=== PATIENT | female | born 1950 | race Caucasian/White ===

== ENCOUNTER → 2016-08-12 | Outpatient (CLI) | payer MEDICARE, MEDICAID ==
[~2016-08-12] MED LIST: ACYCLOVIR200 MG PO; ADVIL200 MG PO; ANTI-DIARRHEAL2 MG PO; ASPIRIN 81M81 MG/TA2 PO; ASPIRIN E.C. 8181 MG PO; AVONEX ADM30 MCG/KIT IM; AVONEX PEN30 MCG/0.5 IM; BACTRIM DS 8001 TAB PO; BENADRYL25 M2 PO; BENGAY COLD THERAP5% TP; BENGAY ULTRA STREN5% TP; BETASERON0.3 MG SC; BIOFREEZE 0.2%-1 GE1 TOP; BUMETANIDE0.5 MG PO; BUMEX 1MG TA1 MG/TA1 PO; CALCIUM 600600 M2 PO; CALCIUM CARBON650 M2 PO; CARBATROL200 MG PO; CARDI-OMEGA1000 MG PO; CEFTIN500 MG PO; CHLORZOXAZONE; CITRUCEL WI2 GM/Dose PO; CLARITIN 1010 MG/TAB PO; CLEOCIN HC150 MG/CAP PO; COLACE 100100 MG/CAP PO; DARVOCET-N-101 UDTAB PO; DEMADEX 20MG20 M1 PO; DOXYCYCLINE 10100 MG PO; EPA FISH OIL1 SGL PO; EPITOL200 MG PO; FENTANYL 25 MCG TD; FENTANYL 50MCG TD; FENTANYL37.5 MCG/H TD; FIBER0.52 GM PO; FISH OIL 1000MG1 CAP PO; FLEXERIL 1010 MG/TAB PO; FLONASE NASAL S16 GM NS; FLONASEALLERGY NS; FLUOCINONIDE 0.60 GM TP; GLUCOPHAGE XR500 M1 PO; GLUCOSAMINE & C1 CA1 PO; GLUMETZA500 MG PO; GOOD SENSE LAC3000 U PO; IMODIUM 2MG CAPS2 MG PO; KENALOG; KENALOG DENTAL P5 GM DT; KLONOPIN 0.5MG0.5 MG PO; KLONOPIN 1MG1 MG PO; KLOR-CON 1010 MEQ PO; KLOR-CON SPRIN10 MEQ PO; LACTASE ENZYME PO; LASIX 40MG TABL40 MG PO; LEVEMIR FLEX100 U/ML SQ; LEVSIN0.125 M1 PO; LIDEX CR 15GM TP; LIDEX GEL 15GM TOP; LIQUID MAGNESI400 MG PO; LUNESTA2 MG PO; LYRICA 100MG C100 M1 PO; LYRICA 50MG CAP50 MG PO; LYRICA200 MG PO; MAALOX ADVANCE148 ML PO; MAG-AL LIQUID 230 ML PO; MAG-OX 400400 MG/TAB PO; MERREM IV1 GM IV; MICRO-K10 MEQ PO; MIRALAX PA17 GM/Dose PO; MIRAPEX PO; MIRAPEX0.5 MG PO; MIRAPEX0.75 MG PO; MOTRIN 200200 MG/TAB PO; MUCINEX 60600 MG/TA1 PO; MUCINEX D1 TER PO; MULTI MINERAL1 TAB PO; MULTIPLE VITAMI1 CAP PO; NASAL DECONGEST10 MG PO; NATURAL MAGNES200 MG PO; NOVOLOG 100U100 U/M1 SQ; NYSTATIN ORAL; OSCAL 500 TAB500 MG PO; OXY IR5 MG PO; PERCOCET 325 MG1 TA2 PO; PERCOCET 325 MG1 TAB PO; PRILOSEC 20MG20 MG PO; PRILOTC; PROBIOTIC ACID1 EAC3 PO; SALINE 45 ML45 ML NS; SALINE MIST 4545 ML NS; SINGULAIR 110 MG/TAB PO; STOOL SOFTENER100 M1 PO; SUDAFED30 MG PO; TEGRETOL 2200 MG/TA1 PO; THE MEDICINE SH1 POW PO; TOPAMAX 100MG100 M1 PO; TOPAMAX100 MG PO; TYLENOL 325MG325 MG PO; ULTRAM 50MG TAB50 MG PO; VITAMIN C500 MG PO; XOPENEX HF0.045 MG/A IH; ZOFRAN 4MG T4 MG/TAB PO; ZOLOFT 25MG25 MG PO; ZOLOFT25 MG PO; ZOVIRAX 200MG200 MG PO; ZOVIRAX200 MG PO; [UNRECOGNIZED DRUG - CODE] PO; [UNRECOGNIZED DRUG - OTHER]; [UNRECOGNIZED DRUG - OTHER] IM; [UNRECOGNIZED DRUG - OTHER] TP
== END ==
LOC: WCC 08:34
DX: I89.0 Lymphedema, not elsewhere classified (principal); R19.7 Diarrhea, unspecified; E66.01 Morbid (severe) obesity due to excess calories
CPT/HCPCS: G0463

== ENCOUNTER 2016-09-08 12:13 | Outpatient (RCR) | payer MEDICARE, MEDICAID ==
[~2016-09-08 12:13] MED LIST changes: -ANTI-DIARRHEAL2 MG PO; -AVONEX ADM30 MCG/KIT IM; -AVONEX PEN30 MCG/0.5 IM; -BACTRIM DS 8001 TAB PO; -BENGAY COLD THERAP5% TP; -BUMEX 1MG TA1 MG/TA1 PO; -CALCIUM CARBON650 M2 PO; -CLEOCIN HC150 MG/CAP PO; -DOXYCYCLINE 10100 MG PO; -EPA FISH OIL1 SGL PO; -FENTANYL 50MCG TD; -FENTANYL37.5 MCG/H TD; -FIBER0.52 GM PO; -GLUCOPHAGE XR500 M1 PO; -GLUMETZA500 MG PO; -IMODIUM 2MG CAPS2 MG PO; -KENALOG DENTAL P5 GM DT; -KLOR-CON 1010 MEQ PO; -KLOR-CON SPRIN10 MEQ PO; -LEVSIN0.125 M1 PO; -LIDEX CR 15GM TP; -MAALOX ADVANCE148 ML PO; -MERREM IV1 GM IV; -NATURAL MAGNES200 MG PO; -PROBIOTIC ACID1 EAC3 PO; -SALINE 45 ML45 ML NS; -[UNRECOGNIZED DRUG - OTHER] IM
== END 2016-11-10 16:52 | disposition home or self-care (01) ==
LOC: WSPT 12:13
DX: I89.0 Lymphedema, not elsewhere classified (principal); L97.821 Non-pressure chronic ulcer of other part of left lower leg limited to breakdown of skin; L97.811 Non-pressure chronic ulcer of other part of right lower leg limited to breakdown of skin
CPT/HCPCS: G8978-GP; G8979-GP; G8980-GP

== ENCOUNTER → 2016-09-22 | Outpatient (CLI) | payer MEDICARE, MEDICAID ==
[~2016-09-22] MED LIST changes: +ANTI-DIARRHEAL2 MG PO; +AVONEX ADM30 MCG/KIT IM; +AVONEX PEN30 MCG/0.5 IM; +BACTRIM DS 8001 TAB PO; +BENGAY COLD THERAP5% TP; +BUMEX 1MG TA1 MG/TA1 PO; +CALCIUM CARBON650 M2 PO; +CLEOCIN HC150 MG/CAP PO; +DOXYCYCLINE 10100 MG PO; +EPA FISH OIL1 SGL PO; +FENTANYL 50MCG TD; +FENTANYL37.5 MCG/H TD; +FIBER0.52 GM PO; +GLUCOPHAGE XR500 M1 PO; +GLUMETZA500 MG PO; +IMODIUM 2MG CAPS2 MG PO; +KENALOG DENTAL P5 GM DT; +KLOR-CON 1010 MEQ PO; +KLOR-CON SPRIN10 MEQ PO; +LEVSIN0.125 M1 PO; +LIDEX CR 15GM TP; +MAALOX ADVANCE148 ML PO; +MERREM IV1 GM IV; +NATURAL MAGNES200 MG PO; +PROBIOTIC ACID1 EAC3 PO; +SALINE 45 ML45 ML NS; +[UNRECOGNIZED DRUG - OTHER] IM
[2016-09-22 11:01] LABS: PH 6 (5-8); SQUAMOUS EPITHELIAL 0-2 /hpf; URINE APPEARANCE Cloudy; URINE BACTERIA Moderate /hpf; URINE BILIRUBIN Negative (NEGATIVE); URINE BLOOD Negative (NEGATIVE); URINE COLOR Yellow; URINE GLUCOSE Negative (NEGATIVE); URINE KETONE Negative (NEGATIVE); URINE UROBILINOGEN Negative (NEGATIVE); URINE WBC >50 /hpf
== END ==
LOC: ZCOL.LAB 10:18
PROVIDERS: Family Medicine
DX: R31.9 Hematuria, unspecified (principal); R29.6 Repeated falls

== ENCOUNTER → 2016-09-30 | Outpatient (CLI) | payer MEDICARE, MEDICAID | LOC: ZCOL.LAB 17:57 | DX: K59.09 Other constipation (principal); R29.6 Repeated falls ==

== ENCOUNTER → 2016-11-20 | Outpatient (CLI) | payer MEDICARE, MEDICAID | LOC: WCC 09:46 | DX: I89.0 Lymphedema, not elsewhere classified (principal); E66.01 Morbid (severe) obesity due to excess calories | CPT/HCPCS: 27510; A6197; G0463 ==

== ENCOUNTER 2016-11-22 21:36 | Emergency (ER) | payer MEDICARE, MEDICAID ==
[~2016-11-22] VITALS: Ht 152.4 cm; Wt 118.2 kg
[~2016-11-22 21:36] MED LIST changes: -ANTI-DIARRHEAL2 MG PO; -AVONEX ADM30 MCG/KIT IM; -AVONEX PEN30 MCG/0.5 IM; -BACTRIM DS 8001 TAB PO; -BENGAY COLD THERAP5% TP; -BUMEX 1MG TA1 MG/TA1 PO; -CALCIUM CARBON650 M2 PO; -CLEOCIN HC150 MG/CAP PO; -DOXYCYCLINE 10100 MG PO; -EPA FISH OIL1 SGL PO; -FENTANYL 50MCG TD; -FENTANYL37.5 MCG/H TD; -FIBER0.52 GM PO; -GLUCOPHAGE XR500 M1 PO; -GLUMETZA500 MG PO; -IMODIUM 2MG CAPS2 MG PO; -KENALOG DENTAL P5 GM DT; -KLOR-CON 1010 MEQ PO; -KLOR-CON SPRIN10 MEQ PO; -LEVSIN0.125 M1 PO; -LIDEX CR 15GM TP; -MAALOX ADVANCE148 ML PO; -MERREM IV1 GM IV; -NATURAL MAGNES200 MG PO; -PROBIOTIC ACID1 EAC3 PO; -SALINE 45 ML45 ML NS; -[UNRECOGNIZED DRUG - OTHER] IM
[2016-11-22 22:50] LABS: BASO % 0.3 % (0.0-2.0); GRAN # 9.7 (1.4-6.5); GRAN % 84.2 % (42.2-75.2); HEMOGLOBIN 12.4 g/dl (12.5-16.0); LYMPH # 1.1 (1.2-3.4); LYMPH % 9.1 % (20.0-51.0); MEAN CELL VOLUME 91 fl (80.0-100.0); MEAN CORPUSCULAR HEMOGLOBIN 30 pg (27.0-31.0); MEAN CORPUSCULAR HGB CONC 33 g/dl (33.0-37.0); MEAN PLATELET VOLUME 9.9 fl (7.4-10.4); MONO # 0.7 (0.1-0.6); MONO % 5.9 % (1.7-9.3); PLATELET COUNT 200 K/mm3 (130-400); RED BLOOD COUNT 4.16 M/mm3 (4.10-5.30); REDCELL DISTRIBUTION WIDTH-CV 13.2 % (11.5-14.5); WHITE BLOOD COUNT 11.5 K/mm3 (4.8-10.8)
[2016-11-22 22:56] LABS: INR 1.3 (0.8-3.0)
[2016-11-22 22:58] LABS: ADJUSTED CALCIUM 8.7 mg/dL (8.4-10.2); ALANINE AMINOTRANSFERASE 25 U/L (9-52); ALBUMIN 4.1 gm/dL (3.5-5.0); ALKALINE PHOSPHATASE 122 U/L (50-136); ANION GAP 11 mmol/L (7-16); BILIRUBIN,TOTAL 0.9 mg/dL (0.0-1.0); BLOOD UREA NITROGEN 15 mg/dL (7-17); CALCIUM 8.8 mg/dL (8.4-10.2); CARBON DIOXIDE 27 mmol/L (22-30); CHLORIDE 100 mmol/L (98-107); CREATINE KINASE 53 U/L (30-135); CREATININE, serum 0.69 mg/dL (0.52-1.25); GLUCOSE 113 mg/dL (74-106); POTASSIUM 3.7 mmol/L (3.4-5.0); SODIUM 138 mmol/L (137-145); TOTAL PROTEIN 7.6 gm/dL (6.4-8.2)
[2016-11-22 22:59] LABS: PARTIAL THROMBOPLASTIN TIME 31.3 SECONDS (26.0-37.0)
[2016-11-22 23:10] LABS: B-TYPE NATRIURETIC PEPTIDE 316 pg/mL (0-125)
[2016-11-22 23:13] VITALS: TEMP 101.8
[2016-11-22 23:22] LABS: PH 7 (5-8); URINE APPEARANCE Cloudy; URINE BILIRUBIN Negative (NEGATIVE); URINE BLOOD Negative (NEGATIVE); URINE COLOR Yellow; URINE GLUCOSE Negative (NEGATIVE); URINE KETONE Negative (NEGATIVE); URINE UROBILINOGEN Negative (NEGATIVE)
[2016-11-22 23:27] LABS: TROPONIN-I < 0.012 ng/mL (0.000-0.034)
[2016-11-22 23:38] LABS: URINE BACTERIA Many /hpf; URINE RBC 0-2 /hpf
[2016-11-23] MEDS ORDERED: CEFTIN500 MG PO (00:08)
[2016-11-23 00:45] VITALS: BP 127/52; PULSE 82
[2016-11-23] MEDS ORDERED: ANTI-DIARRHEAL2 MG PO (03:16)
[2016-11-23] MEDS ORDERED: PROBIOTIC ACID1 EAC3 PO (03:17)
[2016-11-23] MEDS ORDERED: GLUCOPHAGE XR500 M1 PO (03:20)
[2016-11-23] MEDS ORDERED: KENALOG DENTAL P5 GM DT (03:21)
[2016-11-23] MEDS ORDERED: LEVSIN0.125 M1 PO (03:24)
[2016-11-23] MEDS ORDERED: FENTANYL37.5 MCG/H TD (03:24)
[2016-11-23] MEDS ORDERED: [UNRECOGNIZED DRUG - OTHER] IM (03:27)
== END 2016-11-23 01:08 | disposition home or self-care (01) ==
LOC: COL.ER 21:36
PROVIDERS: Emergency Medicine
DX: N39.0 Urinary tract infection, site not specified (principal); E11.9 Type 2 diabetes mellitus without complications; G35 Multiple sclerosis; Z87.440 Personal history of urinary (tract) infections; Z79.4 Long term (current) use of insulin
CPT/HCPCS: J0696

== ENCOUNTER 2016-12-05 14:22 | Emergency (ER) | payer MEDICARE, MEDICAID ==
[~2016-12-05] VITALS: Ht 154.9 cm; Wt 119.1 kg
[~2016-12-05 14:22] MED LIST changes: +ANTI-DIARRHEAL2 MG PO; +FENTANYL37.5 MCG/H TD; +GLUCOPHAGE XR500 M1 PO; +KENALOG DENTAL P5 GM DT; +LEVSIN0.125 M1 PO; +PROBIOTIC ACID1 EAC3 PO; +[UNRECOGNIZED DRUG - OTHER] IM
[2016-12-05 14:35] VITALS: BP 103/61; TEMP 98.2
[2016-12-05 15:45] LABS: BASO % 0.5 % (0.0-2.0); EOS # 0.1 (0.0-0.7); EOS % 2.2 % (0-4.0); GRAN # 3.5 (1.4-6.5); GRAN % 60.5 % (42.2-75.2); LYMPH # 1.8 (1.2-3.4); LYMPH % 30.6 % (20.0-51.0); MEAN CELL VOLUME 91 fl (80.0-100.0); MEAN CORPUSCULAR HGB CONC 33 g/dl (33.0-37.0); MEAN PLATELET VOLUME 9.2 fl (7.4-10.4); MONO # 0.4 (0.1-0.6); PLATELET COUNT 256 K/mm3 (130-400); RED BLOOD COUNT 3.73 M/mm3 (4.10-5.30); REDCELL DISTRIBUTION WIDTH-CV 12.7 % (11.5-14.5); WHITE BLOOD COUNT 5.9 K/mm3 (4.8-10.8)
[2016-12-05 15:51] LABS: HEMATOCRIT 34.1 % (37.0-47.0); HEMOGLOBIN 11.1 g/dl (12.5-16.0); MEAN CORPUSCULAR HEMOGLOBIN 30 pg (27.0-31.0)
[2016-12-05 16:02] LABS: C-REACTIVE PROTEIN 3.3 mg/dL (0.0-0.9)
[2016-12-05] MEDS ORDERED: BACTRIM DS 8001 TAB PO (16:18)
[2016-12-05] MEDS ORDERED: BUMEX 1MG TA1 MG/TA1 PO (16:18)
[2016-12-05 16:36] LABS: CALCIUM 8.6 mg/dL (8.4-10.2); CREATININE, serum 0.6 mg/dL (0.52-1.25); POTASSIUM 3.7 mmol/L (3.4-5.0)
[2016-12-05] MEDS ORDERED: KLOR-CON SPRIN10 MEQ PO (16:42)
[2016-12-05 17:34] VITALS: PULSE 76
== END 2016-12-05 17:35 | disposition home or self-care (01) ==
LOC: COL.ER 14:22
PROVIDERS: Nurse Practitioner
DX: L03.116 Cellulitis of left lower limb (principal); M79.89 Other specified soft tissue disorders; E11.9 Type 2 diabetes mellitus without complications; G35 Multiple sclerosis; L97.829 Non-pressure chronic ulcer of other part of left lower leg with unspecified severity; L97.819 Non-pressure chronic ulcer of other part of right lower leg with unspecified severity; Z79.4 Long term (current) use of insulin

== ENCOUNTER → 2016-12-23 | Outpatient (CLI) | payer MEDICARE, MEDICAID ==
[~2016-12-23] MED LIST changes: +AVONEX ADM30 MCG/KIT IM; +AVONEX PEN30 MCG/0.5 IM; +BACTRIM DS 8001 TAB PO; +BENGAY COLD THERAP5% TP; +BUMEX 1MG TA1 MG/TA1 PO; +CALCIUM CARBON650 M2 PO; +CLEOCIN HC150 MG/CAP PO; +DOXYCYCLINE 10100 MG PO; +EPA FISH OIL1 SGL PO; +FENTANYL 50MCG TD; +FIBER0.52 GM PO; +GLUMETZA500 MG PO; +IMODIUM 2MG CAPS2 MG PO; +KLOR-CON 1010 MEQ PO; +KLOR-CON SPRIN10 MEQ PO; +LIDEX CR 15GM TP; +MAALOX ADVANCE148 ML PO; +MERREM IV1 GM IV; +NATURAL MAGNES200 MG PO; +SALINE 45 ML45 ML NS
== END ==
LOC: WCC 09:13
DX: I87.322 Chronic venous hypertension (idiopathic) with inflammation of left lower extremity (principal); I89.0 Lymphedema, not elsewhere classified; E66.01 Morbid (severe) obesity due to excess calories
CPT/HCPCS: 13973; A6199; G0463

== ENCOUNTER 2016-12-31 14:45 | Outpatient (RCR) | payer MEDICARE, MEDICAID ==
[~2016-12-31 14:45] MED LIST changes: -AVONEX ADM30 MCG/KIT IM; -AVONEX PEN30 MCG/0.5 IM; -BENGAY COLD THERAP5% TP; -CALCIUM CARBON650 M2 PO; -CLEOCIN HC150 MG/CAP PO; -DOXYCYCLINE 10100 MG PO; -EPA FISH OIL1 SGL PO; -FENTANYL 50MCG TD; -FIBER0.52 GM PO; -GLUMETZA500 MG PO; -IMODIUM 2MG CAPS2 MG PO; -KLOR-CON 1010 MEQ PO; -LIDEX CR 15GM TP; -MAALOX ADVANCE148 ML PO; -MERREM IV1 GM IV; -NATURAL MAGNES200 MG PO; -SALINE 45 ML45 ML NS
[2017-01-15] MEDS ORDERED: BACTRIM DS 8001 TAB PO (03:50)
[2017-01-15] MEDS ORDERED: CLEOCIN HC150 MG/CAP PO (04:24)
[2017-01-15] MEDS ORDERED: PERCOCET 325 MG1 TA2 PO (04:24)
[2017-02-15] MEDS ORDERED: KLOR-CON 1010 MEQ PO (18:36)
[2017-02-15] MEDS ORDERED: AVONEX ADM30 MCG/KIT IM (18:36)
[2017-02-15] MEDS ORDERED: BUMEX 1MG TA1 MG/TA1 PO (18:38)
[2017-02-15] MEDS ORDERED: FENTANYL 50MCG TD (18:38)
[2017-02-19] MEDS ORDERED: MERREM IV1 GM IV (06:45)
[2017-03-26] MEDS ORDERED: MERREM VIA500 MG/VIA IV (07:18)
== END 2017-03-07 ==
LOC: WSPT
DX: I89.0 Lymphedema, not elsewhere classified (principal); E66.01 Morbid (severe) obesity due to excess calories
CPT/HCPCS: G8978-GP; G8979-GP; G8980-GP

== ENCOUNTER → 2017-01-04 | Outpatient (CLI) | payer MEDICARE, MEDICAID ==
[~2017-01-04] MED LIST changes: +AVONEX ADM30 MCG/KIT IM; +AVONEX PEN30 MCG/0.5 IM; +BENGAY COLD THERAP5% TP; +CALCIUM CARBON650 M2 PO; +CLEOCIN HC150 MG/CAP PO; +DOXYCYCLINE 10100 MG PO; +EPA FISH OIL1 SGL PO; +FENTANYL 50MCG TD; +FIBER0.52 GM PO; +GLUMETZA500 MG PO; +IMODIUM 2MG CAPS2 MG PO; +KLOR-CON 1010 MEQ PO; +LIDEX CR 15GM TP; +MAALOX ADVANCE148 ML PO; +MERREM IV1 GM IV; +NATURAL MAGNES200 MG PO; +SALINE 45 ML45 ML NS
== END ==
LOC: WCC 09:49
DX: I89.0 Lymphedema, not elsewhere classified (principal)
CPT/HCPCS: 27510; A6197; G0463

== ENCOUNTER 2017-01-15 03:15 | Emergency (ER) | payer MEDICARE, MEDICAID ==
[~2017-01-15] VITALS: Ht 152.4 cm; Wt 109.1 kg
[~2017-01-15 03:15] MED LIST changes: -AVONEX ADM30 MCG/KIT IM; -AVONEX PEN30 MCG/0.5 IM; -BENGAY COLD THERAP5% TP; -CALCIUM CARBON650 M2 PO; -CLEOCIN HC150 MG/CAP PO; -DOXYCYCLINE 10100 MG PO; -EPA FISH OIL1 SGL PO; -FENTANYL 50MCG TD; -FIBER0.52 GM PO; -GLUMETZA500 MG PO; -IMODIUM 2MG CAPS2 MG PO; -KLOR-CON 1010 MEQ PO; -LIDEX CR 15GM TP; -MAALOX ADVANCE148 ML PO; -MERREM IV1 GM IV; -NATURAL MAGNES200 MG PO; -SALINE 45 ML45 ML NS
[2017-01-15 03:18] VITALS: TEMP 98.1
[2017-01-15] MEDS ORDERED: BACTRIM DS 8001 TAB PO (03:50)
[2017-01-15] MEDS ORDERED: CLEOCIN HC150 MG/CAP PO (04:24)
[2017-01-15] MEDS ORDERED: PERCOCET 325 MG1 TA2 PO (04:24)
[2017-01-15 06:05] VITALS: BP 140/78; PULSE 70
== END 2017-01-15 06:07 ==
LOC: COL.ER 03:15
DX: I83.228 Varicose veins of left lower extremity with both ulcer of other part of lower extremity and inflammation (principal); L97.829 Non-pressure chronic ulcer of other part of left lower leg with unspecified severity; L03.116 Cellulitis of left lower limb; R53.81 Other malaise; E11.9 Type 2 diabetes mellitus without complications; Z79.4 Long term (current) use of insulin

== ENCOUNTER → 2017-01-25 | Outpatient (CLI) | payer MEDICARE, MEDICAID ==
[~2017-01-25] MED LIST changes: +AVONEX ADM30 MCG/KIT IM; +AVONEX PEN30 MCG/0.5 IM; +BENGAY COLD THERAP5% TP; +CALCIUM CARBON650 M2 PO; +CLEOCIN HC150 MG/CAP PO; +DOXYCYCLINE 10100 MG PO; +EPA FISH OIL1 SGL PO; +FENTANYL 50MCG TD; +FIBER0.52 GM PO; +GLUMETZA500 MG PO; +IMODIUM 2MG CAPS2 MG PO; +KLOR-CON 1010 MEQ PO; +LIDEX CR 15GM TP; +MAALOX ADVANCE148 ML PO; +MERREM IV1 GM IV; +NATURAL MAGNES200 MG PO; +SALINE 45 ML45 ML NS
== END ==
LOC: ZAIV 13:40
DX: Z02.89 Encounter for other administrative examinations (principal)

== ENCOUNTER → 2017-02-19 | Outpatient (CLI) | payer MEDICARE, MEDICAID ==
[2017-02-19 15:24] LABS: CARBAMAZEPINE (TEGRETOL) 5.2 ug/mL (4.0-12.0)
== END ==
LOC: ZCOL.LAB 11:49
PROVIDERS: Family Medicine
DX: E11.21 Type 2 diabetes mellitus with diabetic nephropathy (principal); G55 Nerve root and plexus compressions in diseases classified elsewhere; E83.42 Hypomagnesemia

== ENCOUNTER 2017-03-09 07:11 | Day surgery (SDC) | payer MEDICARE, MEDICAID ==
[~2017-03-09] VITALS: Ht 152.4 cm; Wt 115.2 kg
[~2017-03-09 07:11] MED LIST changes: -AVONEX PEN30 MCG/0.5 IM; -BENGAY COLD THERAP5% TP; -CALCIUM CARBON650 M2 PO; -DOXYCYCLINE 10100 MG PO; -EPA FISH OIL1 SGL PO; -FIBER0.52 GM PO; -GLUMETZA500 MG PO; -IMODIUM 2MG CAPS2 MG PO; -LIDEX CR 15GM TP; -MAALOX ADVANCE148 ML PO; -NATURAL MAGNES200 MG PO; -SALINE 45 ML45 ML NS
[2017-03-09 07:45] VITALS: BP 152/94; PULSE 81; TEMP 97.5
[2017-03-09] MEDS ORDERED: TOPAMAX 100MG100 M1 PO (08:06)
[2017-03-09] MEDS ORDERED: EPA FISH OIL1 SGL PO (08:07)
[2017-03-09] MEDS ORDERED: MULTIPLE VITAMI1 CAP PO (08:08)
[2017-03-09] MEDS ORDERED: VITAMIN C500 MG PO (08:09)
[2017-03-09] MEDS ORDERED: ASPIRIN 81M81 MG/TA2 PO (08:09)
[2017-03-09] MEDS ORDERED: PRILOSEC 20MG20 MG PO (08:10)
[2017-03-09] MEDS ORDERED: LIDEX CR 15GM TP (08:11)
[2017-03-09] MEDS ORDERED: FLONASEALLERGY NS (08:12)
[2017-03-09] MEDS ORDERED: XOPENEX HF0.045 MG/A IH (08:13)
[2017-03-09] MEDS ORDERED: SINGULAIR 110 MG/TAB PO (08:13)
[2017-03-09] MEDS ORDERED: NASAL DECONGEST10 MG PO (08:14)
[2017-03-09] MEDS ORDERED: [UNRECOGNIZED DRUG - CODE] PO (08:16)
[2017-03-09] MEDS ORDERED: CALCIUM CARBON650 M2 PO (08:17)
[2017-03-09] MEDS ORDERED: TYLENOL 325MG325 MG PO (08:17)
[2017-03-09] MEDS ORDERED: PERCOCET 325 MG1 TAB PO (08:18)
[2017-03-09] MEDS ORDERED: TEGRETOL 2200 MG/TA1 PO (08:19)
[2017-03-09] MEDS ORDERED: SALINE 45 ML45 ML NS (08:20)
[2017-03-09] MEDS ORDERED: BENGAY COLD THERAP5% TP (08:23)
[2017-03-09] MEDS ORDERED: [UNRECOGNIZED DRUG - OTHER] TP (08:24)
[2017-03-09] MEDS ORDERED: BENADRYL25 M2 PO (08:25)
[2017-03-09] MEDS ORDERED: FIBER0.52 GM PO (08:25)
[2017-03-09] MEDS ORDERED: IMODIUM 2MG CAPS2 MG PO (08:26)
[2017-03-09] MEDS ORDERED: NATURAL MAGNES200 MG PO (08:27)
[2017-03-09] MEDS ORDERED: ZOVIRAX 200MG200 MG PO (08:27)
[2017-03-09] MEDS ORDERED: ZOFRAN 4MG T4 MG/TAB PO (08:28)
[2017-03-09] MEDS ORDERED: COLACE 100100 MG/CAP PO (08:28)
[2017-03-09] MEDS ORDERED: LYRICA200 MG PO (08:29)
[2017-03-09] MEDS ORDERED: GLUMETZA500 MG PO (08:30)
[2017-03-09] MEDS ORDERED: LEVEMIR FLEX100 U/ML SQ (08:31)
[2017-03-09] MEDS ORDERED: LEVSIN0.125 M1 PO (08:32)
[2017-03-09] MEDS ORDERED: MAALOX ADVANCE148 ML PO (08:32)
[2017-03-09] MEDS ORDERED: AVONEX PEN30 MCG/0.5 IM (08:34)
[2017-03-09] MEDS ORDERED: KLOR-CON 1010 MEQ PO (08:34)
[2017-03-09] MEDS ORDERED: MIRAPEX0.5 MG PO (08:36)
[2017-03-09] MEDS ORDERED: PERCOCET 325 MG1 TA2 PO (08:37)
[2017-03-09] MEDS ORDERED: FENTANYL 50MCG TD (08:37)
[2017-03-09] MEDS ORDERED: BUMEX 1MG TA1 MG/TA1 PO (08:37)
[2017-03-09] MEDS ORDERED: DOXYCYCLINE 10100 MG PO (08:38)
[2017-03-09 09:58] VITALS: BP 160/82; PULSE 77; TEMP 97.5
[2017-03-09 10:15] VITALS: BP 173/87; PULSE 77
[2017-03-09 10:30] VITALS: BP 172/83; PULSE 75
[2017-03-09 11:00] VITALS: BP 118/58; PULSE 67
[2017-03-09 12:41] VITALS: BP 136/87; PULSE 81
[2017-03-26] MEDS ORDERED: MERREM VIA500 MG/VIA IV (07:18)
== END 2017-03-09 11:50 | disposition home or self-care (01) ==
LOC: SDCO 07:11
DX: K29.50 Unspecified chronic gastritis without bleeding (principal); K21.9 Gastro-esophageal reflux disease without esophagitis; K59.00 Constipation, unspecified; R10.32 Left lower quadrant pain; R63.4 Abnormal weight loss; G25.81 Restless legs syndrome; G35 Multiple sclerosis; E11.42 Type 2 diabetes mellitus with diabetic polyneuropathy; C02.9 Malignant neoplasm of tongue, unspecified; M19.90 Unspecified osteoarthritis, unspecified site; F41.9 Anxiety disorder, unspecified; G89.29 Other chronic pain; Z86.010 Personal history of colon polyps; Z79.84 Long term (current) use of oral hypoglycemic drugs; Z79.4 Long term (current) use of insulin
CPT/HCPCS: OP; J1644; J2250; J2704; J7030

== ENCOUNTER 2017-04-03 21:43 | Outpatient (RCR) | payer MEDICARE, MEDICAID ==
[~2017-04-03 21:43] MED LIST changes: +AVONEX PEN30 MCG/0.5 IM; +BACTROBAN 22GM22 GM TP; +BENGAY COLD THERAP5% TP; +CALCIUM CARBON650 M2 PO; +DOXYCYCLINE 10100 MG PO; +EPA FISH OIL1 SGL PO; +FIBER0.52 GM PO; +GLUMETZA500 MG PO; +IMODIUM 2MG CAPS2 MG PO; +LIDEX CR 15GM TP; +MAALOX ADVANCE148 ML PO; +MERREM VIA500 MG/VIA IV; +NATURAL MAGNES200 MG PO; +SALINE 45 ML45 ML NS
== END 2017-04-03 23:30 | disposition home or self-care (01) ==
LOC: EUO 23:30
DX: Z01.89 Encounter for other specified special examinations (principal)

== ENCOUNTER → 2017-04-16 | Outpatient (CLI) | payer MEDICARE, MEDICAID | LOC: ZCOL.LAB 11:46 | DX: R19.7 Diarrhea, unspecified (principal) ==

== ENCOUNTER 2017-05-18 20:38 | Emergency (ER) | payer MEDICARE, MEDICAID ==
[~2017-05-18] VITALS: Ht 152.4 cm; Wt 111.4 kg
[2017-05-18 21:21] LABS: BASO % 0.4 % (0.0-2.0); EOS # 0.1 (0.0-0.7); EOS % 1.8 % (0-4.0); GRAN % 59.1 % (42.2-75.2); LYMPH # 1.5 (1.2-3.4); LYMPH % 30.9 % (20.0-51.0); MEAN CELL VOLUME 91 fl (80.0-100.0); MEAN CORPUSCULAR HEMOGLOBIN 30 pg (27.0-31.0); MEAN CORPUSCULAR HGB CONC 33 g/dl (33.0-37.0); MEAN PLATELET VOLUME 9.8 fl (7.4-10.4); MONO # 0.4 (0.1-0.6); MONO % 7.6 % (1.7-9.3); PLATELET COUNT 185 K/mm3 (130-400); RED BLOOD COUNT 4.05 M/mm3 (4.10-5.30)
[2017-05-18 21:22] LABS: HEMATOCRIT 36.9 % (37.0-47.0)
[2017-05-18 21:26] LABS: INR 1.1 (0.8-3.0); PROTHROMBIN TIME 11.7 SECONDS (9.7-12.8)
[2017-05-18 21:28] LABS: PARTIAL THROMBOPLASTIN TIME 29.8 SECONDS (26.0-37.0)
[2017-05-18 21:38] LABS: ADJUSTED CALCIUM 8.7 mg/dL (8.4-10.2); ALANINE AMINOTRANSFERASE 33 U/L (9-52); ALBUMIN 4.1 gm/dL (3.5-5.0); ALKALINE PHOSPHATASE 116 U/L (50-136); ANION GAP 10 mmol/L (7-16); BILIRUBIN,TOTAL 0.5 mg/dL (0.0-1.0); BLOOD UREA NITROGEN 16 mg/dL (7-17); CALCIUM 8.8 mg/dL (8.4-10.2); CARBON DIOXIDE 27 mmol/L (22-30); CHLORIDE 102 mmol/L (98-107); CREATININE, serum 0.64 mg/dL (0.52-1.25); GLUCOSE 126 mg/dL (74-106); POTASSIUM 3.4 mmol/L (3.4-5.0); SODIUM 139 mmol/L (137-145); TOTAL PROTEIN 7.4 gm/dL (6.4-8.2)
[2017-05-18 21:40] LABS: C-REACTIVE PROTEIN < 0.5 mg/dL (0.0-0.9)
[2017-05-18 21:47] LABS: B-TYPE NATRIURETIC PEPTIDE 58 pg/mL (0-125); TROPONIN-I < 0.012 ng/mL (0.000-0.034)
[2017-05-18 21:51] LABS: COLLECTION METHOD CLEAN CATCH
[2017-05-18 22:12] LABS: BUDDING YEAST Present /hpf; PH 6 (5-8); URINE APPEARANCE Cloudy; URINE BACTERIA None Seen /hpf; URINE BILIRUBIN Negative (NEGATIVE); URINE BLOOD 1+ (NEGATIVE); URINE COLOR Yellow; URINE GLUCOSE Negative (NEGATIVE); URINE KETONE Negative (NEGATIVE); URINE LEUKOCYTE ESTERASE 3+ (NEGATIVE); URINE PROTEIN(semi-quant) Negative (NEGATIVE); URINE UROBILINOGEN Negative (NEGATIVE)
[2017-05-18 22:13] LABS: URINE WBC >50 /hpf
[2017-05-19 00:02] VITALS: BP 129/72; PULSE 77
== END 2017-05-19 00:10 | disposition home or self-care (01) ==
LOC: COL.ER 20:38
PROVIDERS: Family Medicine
DX: R07.89 Other chest pain (principal); M48.00 Spinal stenosis, site unspecified; R78.81 Bacteremia; I10 Essential (primary) hypertension; E11.9 Type 2 diabetes mellitus without complications; E78.5 Hyperlipidemia, unspecified; Z79.82 Long term (current) use of aspirin; Z79.84 Long term (current) use of oral hypoglycemic drugs
CPT/HCPCS: J1170; J1885

== ENCOUNTER 2017-10-11 08:43 | Day surgery (SDC) | payer MEDICARE, MEDICAID ==
[~2017-10-11] VITALS: Ht 152.4 cm; Wt 112.1 kg
[2017-10-11] MEDS ORDERED: AVONEX PEN30 MCG/0.5 IM (09:28)
[2017-10-11] MEDS ORDERED: PAMELOR 25MG25 MG PO (10:15)
[2017-10-11] MEDS ORDERED: PROBIOTIC-MAJOR PO (10:15)
[2017-10-11] MEDS ORDERED: PEPCID 20MG TAB20 MG PO (10:15)
[2017-10-11 10:26] VITALS: BP 151/72; PULSE 84; TEMP 98.2
[2017-10-11 13:05] VITALS: BP 152/107; PULSE 82; TEMP 98.1
[2017-10-11 13:20] VITALS: BP 154/74; PULSE 72
[2017-10-11 13:35] VITALS: BP 157/66; PULSE 81
[2017-10-11] MEDS ORDERED: OXYCODONE H5 MG/5 ML PO (13:51)
[2017-10-11] MEDS ORDERED: LIDOCAINE HCL100 M1 MM (13:51)
[2017-10-11] MEDS ORDERED: PERIDEX (CHLOR480 ML MM (13:52)
[2017-10-11 13:59] VITALS: BP 135/74; PULSE 80
== END 2017-10-11 15:25 | disposition home or self-care (01) ==
LOC: SDCO 08:43
DX: C02.0 Malignant neoplasm of dorsal surface of tongue (principal); E11.40 Type 2 diabetes mellitus with diabetic neuropathy, unspecified; Z79.84 Long term (current) use of oral hypoglycemic drugs; Z87.891 Personal history of nicotine dependence; E66.01 Morbid (severe) obesity due to excess calories; Z79.82 Long term (current) use of aspirin; J45.909 Unspecified asthma, uncomplicated; G25.81 Restless legs syndrome; G35 Multiple sclerosis; G89.29 Other chronic pain; G50.0 Trigeminal neuralgia; F41.9 Anxiety disorder, unspecified; M48.00 Spinal stenosis, site unspecified; M79.7 Fibromyalgia; I10 Essential (primary) hypertension; Z88.1 Allergy status to other antibiotic agents; Z88.0 Allergy status to penicillin; Z88.8 Allergy status to other drugs, medicaments and biological substances
CPT/HCPCS: J1100; J2405; J2704; J3010; J7030

== ENCOUNTER → 2017-10-12 | Outpatient (CLI) | payer MEDICARE, MEDICAID ==
[~2017-10-12] MED LIST changes: +LIDOCAINE HCL100 M1 MM; +OXYCODONE H5 MG/5 ML PO; +PAMELOR 25MG25 MG PO; +PEPCID 20MG TAB20 MG PO; +PERIDEX (CHLOR480 ML MM; +PROBIOTIC-MAJOR PO
[2017-10-12 12:49] LABS: COLLECTION METHOD CLEAN CATCH
[2017-10-12 12:56] LABS: BUDDING YEAST Present /hpf; MUCOUS Present /lpf; PH 7 (5-8); URINE APPEARANCE Cloudy; URINE BACTERIA Rare /hpf; URINE BILIRUBIN Negative (NEGATIVE); URINE BLOOD 2+ (NEGATIVE); URINE COLOR Yellow; URINE GLUCOSE Negative (NEGATIVE); URINE KETONE Negative (NEGATIVE); URINE LEUKOCYTE ESTERASE 3+ (NEGATIVE); URINE NITRATE Negative (NEGATIVE); URINE PROTEIN(semi-quant) Negative (NEGATIVE); URINE UROBILINOGEN Negative (NEGATIVE)
== END ==
LOC: ZCOL.LAB 12:44
PROVIDERS: Family Medicine
DX: N39.0 Urinary tract infection, site not specified (principal)

== ENCOUNTER → 2018-01-10 | Outpatient (CLI) | payer MEDICARE, MEDICAID ==
[2018-01-10 14:25] LABS: BASO # 0.1 (0.0-0.2); EOS # 0.2 (0.0-0.7); GRAN # 2.2 (1.4-6.5); GRAN % 44.8 % (42.2-75.2); HEMOGLOBIN 11.6 g/dl (12.5-16.0); MEAN CELL VOLUME 91 fl (80.0-100.0); MEAN CORPUSCULAR HEMOGLOBIN 29 pg (27.0-31.0); MEAN CORPUSCULAR HGB CONC 32 g/dl (33.0-37.0); MEAN PLATELET VOLUME 10.2 fl (7.4-10.4); MONO # 0.5 (0.1-0.6); PLATELET COUNT 208 K/mm3 (130-400); RED BLOOD COUNT 3.95 M/mm3 (4.10-5.30); REDCELL DISTRIBUTION WIDTH-CV 13.5 % (11.5-14.5)
[2018-01-10 14:26] LABS: HEMATOCRIT 35.9 % (37.0-47.0)
[2018-01-10 14:33] LABS: ALBUMIN 3.5 gm/dL (3.5-5.0); BILIRUBIN,TOTAL 0.2 mg/dL (0.0-1.0); CALCIUM 8.7 mg/dL (8.4-10.2); CREATININE, serum 0.76 mg/dL (0.52-1.25); POTASSIUM 3.7 mmol/L (3.4-5.0); TOTAL PROTEIN 6.4 gm/dL (6.4-8.2)
== END ==
LOC: ZCOL.LAB 14:15
PROVIDERS: Family Medicine
DX: E11.65 Type 2 diabetes mellitus with hyperglycemia (principal); Z79.4 Long term (current) use of insulin

== ENCOUNTER → 2018-09-29 | Outpatient (CLI) | payer MEDICARE, MEDICAID | LOC: MC.RAD 13:32 | DX: Z12.31 Encounter for screening mammogram for malignant neoplasm of breast (principal) ==

== ENCOUNTER 2019-07-04 09:32 | Day surgery (SDC) | payer MEDICARE, MEDICAID ==
[~2019-07-04] VITALS: Ht 152.4 cm; Wt 110.0 kg
[2019-07-04 10:28] VITALS: BP 145/85; PULSE 96; TEMP 98
[2019-07-04] MEDS ORDERED: FORT1000TA PO (10:44)
[2019-07-04] MEDS ORDERED: MAALOX ADVANCE148 ML PO (10:45)
[2019-07-04] MEDS ORDERED: MIRALAX PA17 GM/Dose PO (10:46)
[2019-07-04] MEDS ORDERED: ZYRTEC 10MG10 MG PO (10:47)
[2019-07-04] MEDS ORDERED: GOOD NEIGHBOR P1 CRE TP (10:48)
[2019-07-04] MEDS ORDERED: CENTRUM SILVER1 TA2 PO (10:49)
[2019-07-04] MEDS ORDERED: MAGNESIUM250 M1 PO (10:52)
[2019-07-04] MEDS ORDERED: PROBIOTIC FORMU1 CAP PO (10:53)
[2019-07-04] MEDS ORDERED: TOPAMAX 25MG25 M1 PO (10:56)
[2019-07-04] MEDS ORDERED: MEVACOR10 MG PO (10:57)
[2019-07-04] MEDS ORDERED: CYMBALTA 30MG30 MG PO (10:58)
[2019-07-04] MEDS ORDERED: TESSALON P100 MG/CAP PO (10:59)
[2019-07-04] MEDS ORDERED: PRILOSEC 20MG20 MG PO (10:59)
[2019-07-04] MEDS ORDERED: XOPENEX HF0.045 MG/A IH (11:00)
[2019-07-04] MEDS ORDERED: AVONEX PEN30 MCG/0.5 IM (11:02)
[2019-07-04] MEDS ORDERED: MOTRIN 800800 MG/TAB PO (11:04)
[2019-07-04] MEDS ORDERED: FENTANYL 50MCG TD (11:05)
[2019-07-04] MEDS ORDERED: CANASA 1000MG1000 MG RC (12:08)
[2019-07-04 12:45] VITALS: BP 189/92; PULSE 86; TEMP 97.8
[2019-07-04 12:55] VITALS: BP 181/89
[2019-07-04 13:45] VITALS: BP 147/97; PULSE 86
[2019-07-04 14:00] VITALS: BP 179/85; PULSE 81
== END 2019-07-04 14:35 | disposition home or self-care (01) ==
LOC: SDCO 09:32
DX: K62.89 Other specified diseases of anus and rectum (principal); K21.9 Gastro-esophageal reflux disease without esophagitis; I10 Essential (primary) hypertension; J45.909 Unspecified asthma, uncomplicated; K59.09 Other constipation; G89.29 Other chronic pain; M19.90 Unspecified osteoarthritis, unspecified site; F41.9 Anxiety disorder, unspecified; G50.0 Trigeminal neuralgia; E11.42 Type 2 diabetes mellitus with diabetic polyneuropathy; G40.909 Epilepsy, unspecified, not intractable, without status epilepticus; K58.0 Irritable bowel syndrome with diarrhea; E78.00 Pure hypercholesterolemia, unspecified; G43.909 Migraine, unspecified, not intractable, without status migrainosus; G35 Multiple sclerosis; Z79.82 Long term (current) use of aspirin; Z79.4 Long term (current) use of insulin; Z79.84 Long term (current) use of oral hypoglycemic drugs; Z88.1 Allergy status to other antibiotic agents; Z88.8 Allergy status to other drugs, medicaments and biological substances; Z87.891 Personal history of nicotine dependence; Z85.810 Personal history of malignant neoplasm of tongue; Z86.010 Personal history of colon polyps
CPT/HCPCS: J2704; J7030

== ENCOUNTER → 2020-08-13 | Outpatient (CLI) | payer MEDICARE, MEDICAID ==
[~2020-08-13] MED LIST changes: +CANASA 1000MG1000 MG RC; +CENTRUM SILVER1 TA2 PO; +CYMBALTA 30MG30 MG PO; +FORT1000TA PO; +GOOD NEIGHBOR P1 CRE TP; +MAGNESIUM250 M1 PO; +MEVACOR10 MG PO; +MOTRIN 800800 MG/TAB PO; +PROBIOTIC FORMU1 CAP PO; +TESSALON P100 MG/CAP PO; +TOPAMAX 25MG25 M1 PO; +ZYRTEC 10MG10 MG PO
== END ==
LOC: MC.RAD 12:55
DX: Z12.31 Encounter for screening mammogram for malignant neoplasm of breast (principal); R92.0 Mammographic microcalcification found on diagnostic imaging of breast

== ENCOUNTER → 2020-08-19 | Outpatient (CLI) | payer MEDICARE, MEDICAID | LOC: MC.RAD 14:00 | DX: R92.0 Mammographic microcalcification found on diagnostic imaging of breast (principal) ==

== ENCOUNTER → 2020-08-28 | Outpatient (CLI) | payer MEDICARE, MEDICAID ==
[~2020-08-28] MED LIST changes: +ATROPINE SL; +CYMBALTA 60MG60 MG PO; -FORT1000TA PO; +FORTAMET500 M1 PO; +GERI-TUSSI100 MG/5 M PO; +LIPITOR 40MG TA40 MG PO; +MACROBID 1100 MG/CAP PO; +MIRAPEX0.25 MG PO; +NYSTATIN OR100 MU/ML PO; +PAMELOR50 MG PO; +PRIL40 PO; +PROTONIX 40MG T40 MG PO; -TOPAMAX 25MG25 M1 PO; +TOPAMAX50 MG PO; +TYLENOL 500MG500 MG PO; +ZOFRAN ODT4 MG PO
== END ==
LOC: MC.RAD 08:30
DX: R92.0 Mammographic microcalcification found on diagnostic imaging of breast (principal)

== ENCOUNTER 2020-09-29 06:09 | Emergency (ER) | payer MEDICARE, MEDICAID ==
[~2020-09-29] VITALS: Ht 152.4 cm; Wt 89.5 kg
[~2020-09-29 06:09] MED LIST changes: -ATROPINE SL; -CYMBALTA 60MG60 MG PO; -GERI-TUSSI100 MG/5 M PO; -LIPITOR 40MG TA40 MG PO; -MACROBID 1100 MG/CAP PO; -NYSTATIN OR100 MU/ML PO; -PAMELOR50 MG PO; -PROTONIX 40MG T40 MG PO; -ZOFRAN ODT4 MG PO
[2020-09-29 06:10] VITALS: TEMP 97.3
[2020-09-29 06:51] LABS: BASO % 0.6 % (0.0-2.0); EOS # 0.1 (0.0-0.7); EOS % 1.7 % (0-4.0); GRAN # 1.6 (1.4-6.5); GRAN % 34.9 % (42.2-75.2); HEMATOCRIT 38.3 % (37.0-47.0); HEMOGLOBIN 12.3 g/dl (12.5-16.0); LYMPH # 2.6 (1.2-3.4); LYMPH % 55.5 % (20.0-51.0); MEAN CELL VOLUME 94 fl (80.0-100.0); MEAN CORPUSCULAR HEMOGLOBIN 30 pg (27.0-31.0); MEAN CORPUSCULAR HGB CONC 32 g/dl (33.0-37.0); MONO # 0.3 (0.1-0.6); MONO % 7.1 % (1.7-9.3); PLATELET COUNT 222 K/mm3 (130-400); RED BLOOD COUNT 4.08 M/mm3 (4.10-5.30); REDCELL DISTRIBUTION WIDTH-CV 13.6 % (11.5-14.5)
[2020-09-29 07:00] LABS: ALBUMIN 3.7 gm/dL (3.5-5.0); BILIRUBIN,TOTAL 0.2 mg/dL (0.0-1.0); CALCIUM 8.7 mg/dL (8.4-10.2); CREATININE, serum 0.62 (0.52-1.25); POTASSIUM 3.2 mmol/L (3.4-5.0); TOTAL PROTEIN 6.9 gm/dL (6.4-8.2)
[2020-09-29 07:18] LABS: PROTHROMBIN TIME 11.3 SECONDS (9.7-12.8)
[2020-09-29 07:19] LABS: COLLECTION METHOD CLEAN CATCH
[2020-09-29 07:50] LABS: MUCOUS Present /lpf; PH 5 (5-8); URINE APPEARANCE Cloudy; URINE BACTERIA Rare /hpf; URINE BILIRUBIN Negative (NEGATIVE); URINE BLOOD Negative (NEGATIVE); URINE COLOR Yellow; URINE GLUCOSE Negative (NEGATIVE); URINE KETONE Negative (NEGATIVE); URINE LEUKOCYTE ESTERASE 3+ (NEGATIVE); URINE NITRATE Positive (NEGATIVE); URINE PROTEIN(semi-quant) 1+ (NEGATIVE); URINE UROBILINOGEN Negative (NEGATIVE)
[2020-09-29] MEDS ORDERED: MACROBID 1100 MG/CAP PO (07:59)
[2020-09-29 08:25] VITALS: BP 164/76; PULSE 62
[2020-09-29] MEDS ORDERED: GERI-TUSSI100 MG/5 M PO (12:11)
[2020-09-29] MEDS ORDERED: THE MEDICINE SH1 POW PO (12:13)
== END 2020-09-29 09:27 | disposition home or self-care (01) ==
LOC: COL.ER 06:09
PROVIDERS: Emergency Medicine
DX: R51.9 Headache, unspecified (principal); R10.30 Lower abdominal pain, unspecified; Z88.2 Allergy status to sulfonamides; Z88.1 Allergy status to other antibiotic agents; Z79.82 Long term (current) use of aspirin; Z79.4 Long term (current) use of insulin; W19.XXXA Unspecified fall, initial encounter; Y92.099 Unspecified place in other non-institutional residence as the place of occurrence of the external cause

== ENCOUNTER 2020-10-01 00:31 | Observation (INO) | payer MEDICARE, MEDICAID ==
[~2020-10-01] VITALS: Ht 152.4 cm; Wt 89.5 kg
[~2020-10-01 00:31] MED LIST changes: +GERI-TUSSI100 MG/5 M PO; +MACROBID 1100 MG/CAP PO
[2020-10-01 00:47] LABS: COLLECTION METHOD CATHETER
[2020-10-01 01:05] LABS: BASO % 0.3 % (0.0-2.0); EOS % 0.6 % (0-4.0); GRAN # 5.2 (1.4-6.5); GRAN % 78.1 % (42.2-75.2); HEMATOCRIT 38.1 % (37.0-47.0); HEMOGLOBIN 12.2 g/dl (12.5-16.0); LYMPH # 0.9 (1.2-3.4); LYMPH % 13.8 % (20.0-51.0); MEAN CELL VOLUME 94 fl (80.0-100.0); MEAN CORPUSCULAR HEMOGLOBIN 30 pg (27.0-31.0); MEAN CORPUSCULAR HGB CONC 32 g/dl (33.0-37.0); MONO # 0.4 (0.1-0.6); MONO % 6.7 % (1.7-9.3); PLATELET COUNT 180 K/mm3 (130-400); RED BLOOD COUNT 4.05 M/mm3 (4.10-5.30); REDCELL DISTRIBUTION WIDTH-CV 13.7 % (11.5-14.5)
[2020-10-01 01:09] LABS: MUCOUS Present /lpf; PH 7 (5-8); URINE APPEARANCE Hazy; URINE BACTERIA None Seen /hpf; URINE BILIRUBIN Negative (NEGATIVE); URINE BLOOD Negative (NEGATIVE); URINE COLOR Amber; URINE GLUCOSE Negative (NEGATIVE); URINE KETONE Trace (NEGATIVE); URINE LEUKOCYTE ESTERASE 1+ (NEGATIVE); URINE NITRATE Negative (NEGATIVE); URINE PROTEIN(semi-quant) Negative (NEGATIVE); URINE RBC 0-2 /hpf; URINE UROBILINOGEN Negative (NEGATIVE)
[2020-10-01 01:19] LABS: ALBUMIN 3.8 gm/dL (3.5-5.0); BILIRUBIN,TOTAL 0.5 mg/dL (0.0-1.0); CALCIUM 8.9 mg/dL (8.4-10.2); CREATININE, serum 0.64 (0.52-1.25); POTASSIUM 3.6 mmol/L (3.4-5.0); TOTAL PROTEIN 7.3 gm/dL (6.4-8.2)
--- NOTE | 2020-10-01 06:23 | NUR ---
Patient to medical room 356 at this time. She is alert and oriented with no complaints of acute pain, just some soreness in her right arm/hip from a recent fall at her assisted living residence. Lung sounds are clear and HR is normal/regular. Bilateral lower extremities have 2+ edema and a dry/earl appearance; They are not tender to the touch. Hand business office manager are equal and no other sensory deficits are noted. Coccyx appears intact and dry. Patient is educated sfdc solution architect light system/fall precautions. Fluids infusing into left hand IV. Will continue to monitor.
--- NOTE | 2020-10-01 07:00 | NUR ---
bedside shift report received from MORGAN Moy
[2020-10-01] MEDS ORDERED: ZOFRAN ODT4 MG PO (07:57)
--- NOTE | 2020-10-01 08:00 | NUR ---
medication reconcilliation completed, given sip of water and will notify provider for diet order, denies needs
[2020-10-01] MEDS ORDERED: PROTONIX 40MG T40 MG PO (08:05)
--- NOTE | 2020-10-01 09:00 | NUR ---
sat up in bed and had breakfast and toelrated well
--- NOTE | 2020-10-01 10:00 | NUR ---
up to bedside commode and voided, when hygiene provided assessed rectal prolapse, denies pain with this
--- NOTE | 2020-10-01 10:40 | NUR ---
C/O headache and right shoulder pain, medicated with percocet 10mg po per her request,
[2020-10-01 11:35] VITALS: BP 123/48; PULSE 81; TEMP 98.3
--- NOTE | 2020-10-01 12:07 | NUR ---
states relief from pain pill given earlier
--- NOTE | 2020-10-01 13:37 | NUR ---
Refrigerated Company Driver met with the patient to compelte intake. The patient lives at [facility]. The patient has a wheelchair available if she needs it. The patient is independent with ADLs but does receive assistance as needed. The patient's PCP is Dr. Chahal and patient has medications delivered from [facility]. The patient has advanced directives in the EMR. They designate her daughter, Shanelle Yan. The patient plans to return to [facility]. PT/OT ordered. SW attempted to contact the nurse at [facility], left message. Discharge disposition: Return to [facility]
[2020-10-01] MEDS ORDERED: MACROBID 1100 MG/CAP PO (13:57)
--- NOTE | 2020-10-01 14:30 | NUR ---
Family Member Caretaker and RN Yumiko ENNIS met with the patient to present the DASILVA forms. The patient understood and signed both forms. A copies were given to the patient and original placed in the chart.
--- NOTE | 2020-10-01 15:45 | NUR ---
arrived on unit per WC from [facility], assisted from WC and into bed, supper ordered
[2020-10-01 16:00] VITALS: BP 128/55; PULSE 80; TEMP 98.6
--- NOTE | 2020-10-01 18:48 | NUR ---
bedside shift report given to MORGAN Mehta
[2020-10-01 20:00] VITALS: BP 120/72; PULSE 79; TEMP 98
--- NOTE | 2020-10-01 23:22 | NUR ---
2044- ASSESSMENT AND VITALS COMPLETE. ALERT AND OX3. INTERMITTENT CONFUSION NOTED. INR FOR EVENING BLOOD SUGAR. NEURO INTACT. C/O RT ARM AND HIP PAIN. TOLERABLE UNLESS MOVING AT THIS TIME. PLAN OF CARE DISCUSSED. LIGHTS DOWN. CALL LIGHT WI REACH. BED IN LOW POSITION. NEEDS MET.
[2020-10-01 23:44] VITALS: BP 142/54; PULSE 69; TEMP 97.6
[2020-10-02 03:58] VITALS: BP 123/50; PULSE 68; TEMP 97.4
--- NOTE | 2020-10-02 05:44 | NUR ---
RESTED THROUGH THE NIGHT WITHOUT INCIDENT. NEEDS MET.
--- NOTE | 2020-10-02 06:04 | NUR ---
BLOOD SUGAR OBTAINED OF 53. JUICE PROVIDED. ASSYMPTOMATIC. WILL RECHECK.
--- NOTE | 2020-10-02 07:00 | NUR ---
Report from MORGAN Mehta. Pt resting in bed, awake and alert, denies needs at this time. Call light in reach.
[2020-10-02 07:42] VITALS: BP 128/48; PULSE 81; TEMP 97.9
--- NOTE | 2020-10-02 08:30 | NUR ---
Assessment complete. Pt resting in bed, alert and oriented x 3, slightly drowsy, reports generalized pain and "not feeling good." Physical assessment unremarkable. Saline lock IV to left hand patent without s/s of complications. No further needs reported. Call light in reach. Bed alarm on.
--- NOTE | 2020-10-02 08:46 | NUR ---
Clinical Specialist Medical Device contacted Nicolás from [facility] regarding discharge. Nicolás states she would like to see how the patient does with PT prior to accepting. LAWRENCE contacted PT and they will work with her first thing this AM. LAWRENCE attended clinical rounds with the team. The patient's daughter Shanelle was on speaker phone. LAWRENCE to fax updates to Nicolás at [facility]
--- NOTE | 2020-10-02 11:29 | NUR ---
Initial visit; Patient thanked General Repair Mechanic for looking in on her and offering encouragement and prayer. General Repair Mechanic will follow up while patient is here and will keep Britney in her prayers.
[2020-10-02 11:43] VITALS: BP 138/64; PULSE 76; TEMP 98.1
[2020-10-02] MEDS ORDERED: FENTANYL 50MCG TD (14:42)
[2020-10-02] MEDS ORDERED: PERCOCET 325 MG1 TAB PO (14:42)
--- NOTE | 2020-10-02 15:08 | NUR ---
PT is recommending post acute rehab. Fence Manufacture Supervisor met with the patient's daughter, Shnaelle to discuss options. Referrals were sent to [facility] and to Cali at [facility]. Nicolás with [facility] reports they can accept the patient back but is she get accepted for post acute rehab she should go. [facility] can accept the patient. The patient will discharge today, 10/02 to [facility]. Transportation will be at 1545. The team, patient and patient's daughter were in agreeance. Discharge orders faxed. There are no additional needs at this time.
[2020-10-02 15:23] VITALS: BP 138/64; PULSE 76; TEMP 98.1
--- NOTE | 2020-10-02 15:54 | NUR ---
Attempted to call report to [facility], no answer, message left.
--- NOTE | 2020-10-02 16:10 | NUR ---
Pt discharged to [facility] via WC accompanied by student nurse and [facility] transportation staff.
== END 2020-10-02 16:12 ==
LOC: COL.ER 00:31 → MEDICAL 03:58
PROVIDERS: Nurse Practitioner; ADMIT Hospitalist
DX: N39.0 Urinary tract infection, site not specified (principal); B96.20 Unspecified Escherichia coli [E. coli] as the cause of diseases classified elsewhere; M25.521 Pain in right elbow; M25.511 Pain in right shoulder; Z79.2 Long term (current) use of antibiotics; I87.8 Other specified disorders of veins; G35 Multiple sclerosis; G25.81 Restless legs syndrome; E11.42 Type 2 diabetes mellitus with diabetic polyneuropathy; G50.0 Trigeminal neuralgia; R51.9 Headache, unspecified; I89.0 Lymphedema, not elsewhere classified; M79.7 Fibromyalgia; G89.29 Other chronic pain; R53.81 Other malaise; E87.6 Hypokalemia; W18.39XA Other fall on same level, initial encounter; Z91.81 History of falling; Y93.01 Activity, walking, marching and hiking; Y92.009 Unspecified place in unspecified non-institutional (private) residence as the place of occurrence of the external cause
CPT/HCPCS: G0378; J0696; J1650; J1815; J7030

== ENCOUNTER → 2020-10-16 | Outpatient (CLI) | payer MEDICARE, MEDICAID ==
[~2020-10-16] MED LIST changes: +ATROPINE SL; +CYMBALTA 60MG60 MG PO; +LIPITOR 40MG TA40 MG PO; +NYSTATIN OR100 MU/ML PO; +PAMELOR50 MG PO; +PROTONIX 40MG T40 MG PO; +ZOFRAN ODT4 MG PO
[2020-10-16 13:45] LABS: COLLECTION METHOD CATHETER
[2020-10-16 14:57] LABS: PH 8 (5-8); SQUAMOUS EPITHELIAL 0-2 /hpf; URINE APPEARANCE Hazy; URINE BACTERIA Rare /hpf; URINE BILIRUBIN Negative (NEGATIVE); URINE BLOOD Negative (NEGATIVE); URINE COLOR Yellow; URINE GLUCOSE Negative (NEGATIVE); URINE KETONE Negative (NEGATIVE); URINE LEUKOCYTE ESTERASE Negative (NEGATIVE); URINE NITRATE Negative (NEGATIVE); URINE PROTEIN(semi-quant) Negative (NEGATIVE); URINE RBC 0-2 /hpf; URINE UROBILINOGEN Negative (NEGATIVE)
== END ==
LOC: ZLAB.STJ 13:15
PROVIDERS: Family Medicine
DX: Z01.89 Encounter for other specified special examinations (principal)

== ENCOUNTER → 2020-10-25 | Outpatient (CLI) | payer MEDICARE, MEDICAID | LOC: COL.RAD 10:40 | DX: S43.014A Anterior dislocation of right humerus, initial encounter (principal); S43.034A Inferior dislocation of right humerus, initial encounter ==

== ENCOUNTER 2021-01-17 10:37 | Day surgery (SDC) | payer MEDICARE, MEDICAID ==
[~2021-01-17] VITALS: Ht 152.4 cm; Wt 79.7 kg
[2021-01-17] VITALS (7 sets, daily range): BP systolic 144–170; BP diastolic 57–91; PULSE 79–90; TEMP 96.7–98.3
[~2021-01-17 10:37] MED LIST changes: -ATROPINE SL; -CYMBALTA 60MG60 MG PO; -LIPITOR 40MG TA40 MG PO; -NYSTATIN OR100 MU/ML PO; -PAMELOR50 MG PO
[2021-01-17] MEDS ORDERED: ZOVIRAX 200MG200 MG PO (11:39)
[2021-01-17] MEDS ORDERED: MAG-AL LIQUID 230 ML PO (11:40)
[2021-01-17] MEDS ORDERED: LIPITOR 40MG TA40 MG PO (11:41)
[2021-01-17] MEDS ORDERED: AVONEX PEN30 MCG/0.5 IM (11:43)
[2021-01-17] MEDS ORDERED: ATROPINE SL (11:43)
[2021-01-17] MEDS ORDERED: COLACE 100100 MG/CAP PO (11:45)
[2021-01-17] MEDS ORDERED: CYMBALTA 60MG60 MG PO (11:46)
[2021-01-17] MEDS ORDERED: LYRICA200 MG PO (11:49)
[2021-01-17] MEDS ORDERED: OXYCODONE H5 MG/5 ML PO (11:51)
[2021-01-17] MEDS ORDERED: NYSTATIN OR100 MU/ML PO (11:51)
[2021-01-17] MEDS ORDERED: PAMELOR50 MG PO (11:52)
[2021-01-17] MEDS ORDERED: PERIDEX (CHLOR480 ML MM (11:54)
[2021-01-17] MEDS ORDERED: PROBIOTIC-MAJOR PO (11:55)
[2021-01-17] MEDS ORDERED: TESSALON P100 MG/CAP PO (11:57)
[2021-01-17] MEDS ORDERED: ZOFRAN 4MG T4 MG/TAB PO (11:59)
[2021-01-17 12:39] LABS: ALBUMIN 3.7 gm/dL (3.5-5.0); CALCIUM 12.3 mg/dL (8.4-10.2); CREATININE, serum 0.5 (0.52-1.25); POTASSIUM 3.2 mmol/L (3.4-5.0)
--- NOTE | 2021-01-17 13:00 | NUR ---
Patient arrives to [facility] [place] [address] via cart, accompanied by Katya Urena RN and Abbe Winslow CRNA. Her daughter is at the bedside. Monitoring is applied - SpO2 reading is 86% and the patient is placed on 2L oxygen per nasal cannula. The patient is sleepy, but responds to staff questions. PIV to TKO. Her mouth is bleeding, irritated from the procedure. Suction is hooked up and secretions are suctioned. She is sat up and asked to cough/deep breath. She is in discomfort. Will let her rest at this time to see if any improvement in pain.
--- NOTE | 2021-01-17 13:15 | NUR ---
Patient has pain in her mouth from the procedure. She is having less secretions, but suction is still available at bedside. Will return with medication for pain.
--- NOTE | 2021-01-17 13:33 | NUR ---
Patient given 50mcg of IV fentanyl for pain. Per patient's daughter, Morphine does not work well for the patient due to her chronic narcotic use/need. Will reassess pain when appropriate.
--- NOTE | 2021-01-17 13:45 | NUR ---
Patient is assisted to a bedside commode with 2:1 assist. She voids and is assisted back to her bed.
--- NOTE | 2021-01-17 14:00 | NUR ---
Patient is resting much more comfortably since pain intervention. Her oxygen saturation after using the restroom is hovering at 88-89% on room air. She is placed on 1 L oxygen per nasal cannula and her SpO2 rises to 95%.
--- NOTE | 2021-01-17 14:08 | NUR ---
bulk intake worker spoke with daughter, Shanelle, regarding arrangements for setting up tube feedings. Worker provided infusion company options and Shanelle chose [facility]. Worker provided [facility] medical and referral and faxed clinical orders and information. Shanelle will picker packer feedings today. Patient is a resident of [facility] and they have confirmed they will not help patient take her tube feeds. Worker confirmed that [facility] cannot assist as they would need a skilled need of teaching patient to perform. Patient is not able to learn and provide her own feedings. Shanelle is working with a hospice agency to assess for possible assistance and plans to move patient to terminal worker care at [facility] if hospice is unable to support patient in assisted living. Worker [facility] Patient will discharge back to her assisted living apartment at [facility] this date.
--- NOTE | 2021-01-17 15:00 | NUR ---
Oxygen was titrated to off at 1440, SpO2 has remained >92% since. Patient is sipping on water.
--- NOTE | 2021-01-17 15:30 | NUR ---
Patient is assisted to the bedside commode with 2:1 assist. She voids and has a large bowel movement. She is assisted back to her bed.
--- NOTE | 2021-01-17 16:15 | NUR ---
Patient has met discharge criteria. Discharge instructions are discussed with the patient and her daughter, they deny any questions. PIV is removed with catheter intact and hemostasis achieved. She is assisted to change to her clothing and transfer into her wheelchair. She is escorted to the exit via wheelchair by staff. She is discharged to home to the care of her daughter at 1615. Her daughter drives her home in a private vehicle.
== END 2021-01-17 16:15 | disposition home or self-care (01) ==
LOC: SDCO 10:37
PROVIDERS: Surgery
DX: C02.9 Malignant neoplasm of tongue, unspecified (principal); Z20.822 Contact with and (suspected) exposure to COVID-19; Z79.82 Long term (current) use of aspirin; E11.42 Type 2 diabetes mellitus with diabetic polyneuropathy; I10 Essential (primary) hypertension; J45.909 Unspecified asthma, uncomplicated; J40 Bronchitis, not specified as acute or chronic; G35 Multiple sclerosis; G25.81 Restless legs syndrome; G50.0 Trigeminal neuralgia; E66.01 Morbid (severe) obesity due to excess calories; F41.9 Anxiety disorder, unspecified; G43.919 Migraine, unspecified, intractable, without status migrainosus; K21.9 Gastro-esophageal reflux disease without esophagitis; Z87.891 Personal history of nicotine dependence; Z79.899 Other long term (current) drug therapy; Z79.51 Long term (current) use of inhaled steroids; Z79.4 Long term (current) use of insulin
CPT/HCPCS: J3010; J7120